=== PATIENT | male | born 1985 | race Two or more races ===

== ENCOUNTER 2019-10-15 02:15 | Emergency (ER) | payer SELFPAY ==
[~2019-10-15] VITALS: Ht 170.2 cm; Wt 68.0 kg
[2019-10-15] MEDS ORDERED: IV NORMAL SALINE 1000ML BAG 1,000 ML IV ONE (04:15)
[2019-10-15 04:29] LABS: BASO # 0.1 x10^3/uL (0.0-0.2); BASO % 1 % (0-3); EOS # 0.1 x10^3/uL (0.0-0.7); EOS % 1 % (0-3); HEMATOCRIT 42.6 % (39.0-53.0); HEMOGLOBIN 14.8 g/dL (13.0-17.5); LYMPH # 1.5 x10^3/uL (1.0-4.8); LYMPH % 24 % (24-48); MEAN CORPUSCULAR HEMOGLOBIN 32 pg (25-35); MEAN CORPUSCULAR HGB CONC 35 g/dL (31-37); MEAN CORPUSCULAR VOLUME 92 fL (79-100); MONO # 0.6 x10^3/uL (0.0-1.1); MONO % 10 % (0-9); NEUT # 4.1 x10^3/uL (1.8-7.7); NEUT % 64 % (31-73); PLATELET COUNT 335 x10^3/uL (140-400); RED BLOOD COUNT 4.65 x10^6/uL (4.30-5.70); RED CELL DISTRIBUTION WIDTH 12.6 % (11.5-14.5); WHITE BLOOD COUNT 6.4 x10^3/uL (4.0-11.0)
[2019-10-15 04:39] LABS: CALCIUM 8.6 mg/dL (8.5-10.1); CREATININE 1.1 mg/dL (0.7-1.3); GFR 77.1; POTASSIUM 4.1 mmol/L (3.5-5.1); PROTHROMBIN TIME PATIENT 13.1 SEC (11.7-14.0)
[2019-10-15 04:45] LABS: ALBUMIN 4.1 g/dL (3.4-5.0); ALBUMIN/GLOBULIN RATIO 1.1 (1.0-1.7); TOTAL BILIRUBIN 0.3 mg/dL (0.2-1.0); TOTAL PROTEIN 7.9 g/dL (6.4-8.2)
[2019-10-15 04:52] LABS: CREATINE KINASE 64 U/L (39-308)
--- NOTE | 2019-10-15 05:17 | RAD ---
Examination: CT HEAD INDICATION: dizziness COMPARISON: None Available. Exposure: One or more of the following individualized dose reduction techniques were utilized for this examination: 1. Automated exposure control 2. Adjustment of the mA and/or kV according to patient size 3. Use of iterative reconstruction technique TECHNIQUE: 5 mm contiguous axial images were obtained from the skull base to the vertex in both bone and soft tissue algorithm. FINDINGS: No abnormal attenuation within the brain parenchyma. No evidence of acute intracranial hemorrhage. No extra-axial fluid collections. No mass effect or midline shift. Ventricular size is appropriate. Basal cisterns are patent. No fractures identified.Ibrahim-white differentiation is preserved.Globes and orbits are within normal limits. Moderate-sized mucous retention cyst or polyp identified in the left maxillary sinus. IMPRESSION: No acute intracranial findings. Electronically signed by: Bradley Shirley MD (10/15/2019 5:14 AM) [id number]
--- NOTE | 2019-10-15 05:24 | PHYS DOC ---
Past Medical History Past Medical History: No Pertinent History Smoking Status: Never Smoker Alcohol Use: Occasionally General Adult EDM: Chief Complaint: NEAR SYNCOPE HPI: HPI: Patient is a 34 year old [f__sex] who presents with [] Review of Systems: Review of Systems: Constitutional: Denies fever or chills. [] Eyes: Denies change in visual acuity. [] HENT: Denies nasal congestion or sore throat. [] Respiratory: Denies cough or shortness of breath. [] Cardiovascular: Denies chest pain or edema. [] GI: Denies abdominal pain, nausea, vomiting, bloody stools or diarrhea. [] : Denies dysuria. [] Musculoskeletal: Denies back pain or joint pain. [] Integument: Denies rash. [] Neurologic: Denies headache, focal weakness or sensory changes. [] Endocrine: Denies polyuria or polydipsia. [] Lymphatic: Denies swollen glands. [] Psychiatric: Denies depression or anxiety. [] Heart Score: Risk Factors: Risk Factors: DM, Current or recent (<one month) smoker, HTN, HLP, family history of CAD, obesity. Risk Scores: Score 0 - 3: 2.5% MACE over next 6 weeks - Discharge Home Score 4 - 6: 20.3% MACE over next 6 weeks - Admit for Clinical Observation Score 7 - 10: 72.7% MACE over next 6 weeks - Early Invasive Strategies Current Medications: Current Medications Medications (Trade) Dose Ordered Sig/Lyndsey Start Time Stop Time Status Last Admin Dose Admin Sodium Chloride 1,000 ml @ 1,000 mls/hr 1X ONCE 10/15/19 04:15 10/15/19 05:14 DC 10/15/19 04:15 1,000 MLS/HR Allergies: Allergies: Allergies Coded Allergies Type Severity Reaction Last Updated Verified No Known Drug Allergies 10/15/19 No Physical Exam: PE: Constitutional: Well developed, well nourished, no acute distress, non-toxic appearance. [] HENT: Normocephalic, atraumatic, bilateral external ears normal, oropharynx moist, no oral exudates, nose normal. [] Eyes: PERRLA, EOMI, conjunctiva normal, no discharge. [] Neck: Normal range of motion, no tenderness, supple, no stridor. [] Cardiovascular:Heart rate regular rhythm, no murmur [] Lungs & Thorax: Bilateral breath sounds clear to auscultation [] Abdomen: Bowel sounds normal, soft, no tenderness, no masses, no pulsatile masses. [] Skin: Warm, dry, no erythema, no rash. [] Back: No tenderness, no CVA tenderness. [] Extremities: No tenderness, no cyanosis, no clubbing, ROM intact, no edema. [] Neurologic: Alert and oriented X 3, normal motor function, normal sensory function, no focal deficits noted. [] Psychologic: Affect normal, judgement normal, mood normal. [] Current Patient Data: Labs: Laboratory Tests Test 10/15/19 03:07 10/15/19 04:16 Glucose (Fingerstick) 108 mg/dL (70-99) H White Blood Count 6.4 x10^3/uL (4.0-11.0) Red Blood Count 4.65 x10^6/uL (4.30-5.70) Hemoglobin 14.8 g/dL (13.0-17.5) Hematocrit 42.6 % (39.0-53.0) Mean Corpuscular Volume 92 fL (79-100) Mean Corpuscular Hemoglobin 32 pg (25-35) Mean Corpuscular Hemoglobin Concent 35 g/dL (31-37) Red Cell Distribution Width 12.6 % (11.5-14.5) Platelet Count 335 x10^3/uL (140-400) Neutrophils (%) (Auto) 64 % (31-73) Lymphocytes (%) (Auto) 24 % (24-48) Monocytes (%) (Auto) 10 % (0-9) H Eosinophils (%) (Auto) 1 % (0-3) Basophils (%) (Auto) 1 % (0-3) Neutrophils # (Auto) 4.1 x10^3/uL (1.8-7.7) Lymphocytes # (Auto) 1.5 x10^3/uL (1.0-4.8) Monocytes # (Auto) 0.6 x10^3/uL (0.0-1.1) Eosinophils # (Auto) 0.1 x10^3/uL (0.0-0.7) Basophils # (Auto) 0.1 x10^3/uL (0.0-0.2) Prothrombin Time 13.1 SEC (11.7-14.0) Prothrombin Time INR 1.0 (0.8-1.1) Activated Partial Thromboplast Time 28 SEC (24-38) Sodium Level 138 mmol/L (136-145) Potassium Level 4.1 mmol/L (3.5-5.1) Chloride Level 103 mmol/L (98-107) Carbon Dioxide Level 28 mmol/L (21-32) Anion Gap 7 (6-14) Blood Urea Nitrogen 18 mg/dL (8-26) Creatinine 1.1 mg/dL (0.7-1.3) Estimated GFR (Cockcroft-Gault) 77.1 BUN/Creatinine Ratio 16 (6-20) Glucose Level 117 mg/dL (70-99) H Calcium Level 8.6 mg/dL (8.5-10.1) Magnesium Level 2.0 mg/dL (1.8-2.4) Total Bilirubin 0.3 mg/dL (0.2-1.0) Aspartate Amino Transferase (AST) 23 U/L (15-37) Alanine Aminotransferase (ALT) 35 U/L (16-63) Alkaline Phosphatase 80 U/L (46-116) Creatine Kinase 64 U/L (39-308) Creatine Kinase MB (Mass) < 0.5 ng/mL (0.0-3.6) Creatine Kinase MB Relative Index % (0-4) Troponin I Quantitative < 0.017 ng/mL (0.000-0.055) Total Protein 7.9 g/dL (6.4-8.2) Albumin 4.1 g/dL (3.4-5.0) Albumin/Globulin Ratio 1.1 (1.0-1.7) Ethyl Alcohol Level < 10 mg/dL (0-10) Laboratory Tests 10/15/19 04:16 Laboratory Tests 10/15/19 04:16 Vital Signs: Vital Signs Date Time Temp Pulse Resp B/P (MAP) Pulse Ox O2 Delivery O2 Flow Rate FiO2 10/15/19 02:30 98.5 74 18 132/82 (99) 99 Room Air 98.5 EKG: EKG: @0408 NSR at 66bpm, QRS 94ms, QT/QTc 372/392ms, J point elevation, incomplete RBBB Radiology/Procedures: Radiology/Procedures: PROCEDURE: CT HEAD WO CONTRAST Examination: CT HEAD INDICATION: dizziness COMPARISON: None Available. Exposure: One or more of the following individualized dose reduction techniques were utilized for this examination: 1. Automated exposure control 2. Adjustment of the mA and/or kV according to patient size 3. Use of iterative reconstruction technique TECHNIQUE: 5 mm contiguous axial images were obtained from the skull base to the vertex in both bone and soft tissue algorithm. FINDINGS: No abnormal attenuation within the brain parenchyma. No evidence of acute intracranial hemorrhage. No extra-axial fluid collections. No mass effect or midline shift. Ventricular size is appropriate. Basal cisterns are patent. No fractures identified.Ibrahim-white differentiation is preserved.Globes and orbits are within normal limits. Moderate-sized mucous retention cyst or polyp identified in the left maxillary sinus. IMPRESSION: No acute intracranial findings. Electronically signed by: Bradley Shirley MD (10/15/2019 5:14 AM) [id number] Course & Med Decision Making: Course & Med Decision Making Pertinent Labs and Imaging studies reviewed. (See chart for details) [] Dragon Disclaimer: Dragon Disclaimer: This electronic medical record was generated, in whole or in part, using a voice recognition dictation system. Departure Departure Impression: Primary Impression: Vertigo Disposition: 01 HOME, SELF-CARE Condition: STABLE Referrals: NO PCP (PCP) ARUN YOO MD Patient Instructions: Dizziness, [id number], Vertigo, [id number] Scripts Meclizine Hcl (MECLIZINE HCL) 25 Mg Tablet 1 TAB PO PRN TID PRN for DIZZINESS, #20 TAB Prov: ANGELIC JOSHI DO 10/15/19 Justicifation of Admission Dx: Justifications for Admission: Justification of Admission Dx: N/A ANGELIC JOSHI DO Oct 15, 2019 05:24
[2019-10-15 06:35] LABS: BILIRUBIN,URINE NEGATIVE (NEG); CLARITY,URINE CLEAR; COLOR,URINE YELLOW; NITRITE,URINE NEGATIVE (NEG); PROTEIN,URINE NEGATIVE (NEG-TRACE); UROBILINOGEN,URINE 0.2 mg/dL (0.2 mg/dL)
[2019-10-15 06:37] LABS: AMPHETAMINE/METHAMPHETAMINE NEG (NEG); BARBITURATES NEG (NEG); BENZODIAZEPINES NEG (NEG); CANNABINOIDS NEG (NEG); COCAINE POS (NEG); METHADONE NEG (NEG); OPIATES NEG (NEG); PHENCYCLIDINE NEG (NEG)
[2019-10-15] MEDS ORDERED: MECL-75 PO (06:42)
[2019-10-15 06:53] VITALS: BP 125/77
[2019-10-15 06:56] LABS: BACTERIA,URINE 0 /HPF (0-FEW); RBC,URINE 0 /HPF (0-2); SQUAMOUS EPITHELIAL CELL,UR OCC /LPF; WBC,URINE 0 /HPF (0-4)
[2019-10-15 06:57] LABS: AMORPHOUS SEDIMENT,UR PRESENT /HPF
[2019-10-15] MEDS ORDERED: DEXAMETHASONE 4 MG TABLET PO ONE (07:00)
[2019-10-15] MEDS ORDERED: MECLIZINE HCL 12.5 MG TABLET. PO ONE (07:00)
--- NOTE | 2019-10-15 15:21 | EKG ---
[facility] [address] [place] [address] Test Date: 2019-10-15 Test Time: 04:08:32 Pat Name: JOSSELYN MORELOS Department: Room: Gender: M Financial Aid Manager: : 1985 Requested By: ANGELIC JOSHI Order Number: [id number] Reading MD: Measurements Intervals [place] Rate: 66 P: 49 NC: 160 QRS: 46 QRSD: 94 T: 37 QT: 372 QTc: 392 Interpretive Statements SINUS RHYTHM OTHERWISE NORMAL ECG RI6.02 No previous ECG available for comparison
== END 2019-10-15 06:53 | disposition home or self-care (01) ==
LOC: ER 02:15
DX: R42 Dizziness and giddiness (principal); R55 Syncope and collapse
CPT/HCPCS: 36415; 70450; 80053; 80307; 81001; 82553; 82962; 83735; 84484; 85025; 85610; 85730; 93005; 96360; 99285; G0480; J7030; J8540; J8597